=== PATIENT | male | born 1965 | race Hispanic/Latino ===

== ENCOUNTER 2017-06-14 14:19 | Emergency (ER) | payer BC, OTHER ==
[~2017-06-14 14:19] MED LIST: IBUP-2077 PO
[2017-06-14] MEDS ORDERED: SODIUM CHLORIDE 0.9% 1000ML 1,000 ML IV ONE (14:58)
[2017-06-14] MEDS ORDERED: MORPHINE SULFATE 4 MG/1ML SYG ONE (14:58)
[2017-06-14] MEDS ORDERED: ONDANSETRON HCL MDV 20ML 2 MG/ML VIAL ONE (14:58)
[2017-06-14 15:01] LABS: BASOPHILS % (AUTO) 0.4 % (0.0-5.0); EOSINOPHILS % (AUTO) 0.6 % (0.0-8.0); HEMATOCRIT 43.1 % (42-54); LYMPHOCYTES % (AUTO) 9.3 % (21.0-51.0); MEAN CORPUSCULAR HEMOGLOBIN 27.8 pg (27.0-33.0); MEAN CORPUSCULAR HGB CONC 33.5 g/dL (32.0-36.0); MEAN CORPUSCULAR VOLUME 83.1 fL (79-99); MONOCYTES % (AUTO) 6.9 % (3.0-13.0); NEUTROPHILS % (AUTO) 82.8 % (40.0-77.0); PLATELET COUNT (AUTO) 352 K/uL (130-400); RED BLOOD CELL COUNT(AUTO) 5.18 MIL/uL (4.50-6.20); RED CELL DISTRIBUTION WIDTH 14.3 % (11.0-15.5); WHITE BLOOD COUNT (AUTO) 15.7 K/uL (4.8-10.8)
[2017-06-14 15:15] LABS: CREATININE 1.2 mg/dL (0.5-1.5); POTASSIUM 3.8 mmol/L (3.5-5.1)
[2017-06-14 15:19] LABS: ALBUMIN 3.6 g/dL (3.5-5.0); BILIRUBIN,TOTAL 0.3 mg/dL (0.2-1.0); TOTAL PROTEIN, SERUM 8.3 g/dL (6.0-8.3)
[2017-06-14 15:25] LABS: INR 0.95 (0.85-1.15); PARTIAL THROMBOPLASTIN TIME 26.6 SEC (26.3-35.5)
[2017-06-14 16:03] LABS: APPEARANCE,URINE Cloudy (CLEAR); BILIRUBIN,URINE Negative (NEGATIVE); COLOR,URINE Yellow (YELLOW); GLUCOSE, URINE (UA) Negative (NEGATIVE); KETONES,URINE Negative (NEGATIVE); LEUKOCYTE ESTERASE ,URINE Negative (NEGATIVE); NITRATE,URINE Negative (NEGATIVE); OCCULT BLOOD,URINE Nonhemolyzed Trace (NEGATIVE); PROTEIN,URINE Negative (NEGATIVE); UROBILINOGEN,URINE 0.2 mg/dL (0.2-1.0)
[2017-06-14 16:11] LABS: AMORPHOUS SEDIMENT,UR Many /LPF (None Seen); BACTERIA,URINE Few /HPF (None Seen); RBC,URINE 0-1 /HPF (0-1); WBC,URINE 0-1 /HPF (0-1)
[2017-06-14 16:12] LABS: MUCUS,URINE Few LPF (None Seen)
[2017-06-14] MEDS ORDERED: IOPAMIDOL-370 75 ML VIAL IV ONE (16:18)
[2017-06-14] MEDS ORDERED: TAMSULOSIN HCL 0.4 MG CAP.ER.24H ONE (18:58)
[2017-06-14] MEDS ORDERED: KETOROLAC TROMETHAMINE 15MG/ML ONE (18:58)
== END 2017-06-14 19:10 | disposition home or self-care (01) ==
LOC: EDH 14:19
DX: N20.1 Calculus of ureter (principal); Z98.890 Other specified postprocedural states
CPT/HCPCS: 36415; 74177; 80053; 81001; 83690; 85025; 85610; 85730; 96361; 96374; 96375; 99285; J1885; J2270; J7030; Q9967

== ENCOUNTER 2023-01-19 08:58 | Day surgery (SDC) | payer BC ==
[2023-01-17 14:41] VITALS: BP 149/68; PULSE 76; RESP 18
[2023-01-19] VITALS (16 sets, daily range): BP systolic 85–130; BP diastolic 45–69; PULSE 58–71; RESP 11–16
[~2023-01-19] VITALS: Ht 170.2 cm; Wt 105.7 kg
[~2023-01-19 08:58] MED LIST changes: -IBUP-2077 PO; +METO25TA6 PO; +VITAMIN C PO
[2023-01-19] MEDS ORDERED: LACTATED RINGERS 1000ML 1,000 ML IV ONE (09:35)
[2023-01-19] MEDS ORDERED: CEFAZOLIN SODIUM 2 GM VIAL ONE (09:35)
[2023-01-19 09:53] LABS: CREATININE 0.9 mg/dL (0.5-1.5); POTASSIUM 4.1 mmol/L (3.5-5.1)
[2023-01-19] MEDS ORDERED: FENTANYL CITRATE PF 50 MCG/1 ML 5ML AMP IV ONE ×3 (10:26→12:38)
[2023-01-19] MEDS ORDERED: BUPIVACAINE/PF 0.25% 30ML VIAL IJ ONE ×2 (12:32→12:46)
[2023-01-19] MEDS ORDERED: DEXAMETHASONE SOD PHOSPHATE 10MG/ML 1ML VIAL ONE (12:36)
[2023-01-19] MEDS ORDERED: ONDANSETRON 4MG INJ ONE (12:36)
[2023-01-19] MEDS ORDERED: PROPOFOL 10 MG/ML 20ML VIAL IV ONE (12:36)
[2023-01-19] MEDS ORDERED: LIDOCAINE PF 100MG/5ML (2%) SYRINGE 5ML ONE (12:36)
[2023-01-19] MEDS ORDERED: MIDAZOLAM HCL 1 MG/ML 5ML VIAL ONE (12:37)
[2023-01-19] MEDS ORDERED: CEFAZOLIN SODIUM 2 GM VIAL IVPB ONE (12:42)
[2023-01-19] MEDS ORDERED: BACITRACIN 28.4 GM OINT TP ONE ×2 (12:47→12:58)
[2023-01-19] MEDS ORDERED: MEPERIDINE-PF 25 MG/ML SYG ONE (12:55)
[2023-01-19] MEDS ORDERED: GLYCOPYRROLATE 1 MG/5 ML SYRINGE ONE (13:22)
== END 2023-01-19 15:35 | disposition home or self-care (01) ==
LOC: DAH 08:58
PROVIDERS: ATTEND Urology
DX: N47.1 Phimosis (principal); N47.8 Other disorders of prepuce; I10 Essential (primary) hypertension; E66.9 Obesity, unspecified; Z86.16 Personal history of COVID-19; Z79.899 Other long term (current) drug therapy
CPT/HCPCS: 54161; 80048; 36415; 88304; A6260; A4663; J7120; J3010 ×3; J3490; J1100; J0665 ×2; J2001; J2250; J2704; J2405; J2175; J0690 ×2; A4215; A4223; A4222; A4221; A4600; A4510